=== PATIENT | female | born 1950 | race Caucasian/White ===

== ENCOUNTER → 2023-06-16 11:33 | Outpatient (REF) | payer MEDICARE, OTHER, SELFPAY ==
[2023-06-16 15:56] LABS: % Basophils 0.5 % (0-2); % Eosinophils 1.9 % (0-6); % Lymphocytes 37.8 % (20.5-51.1); % Monocytes 14.8 % (1.7-9.3); Absolute Eosinophils 0.1 10^3/uL (0-0.7); Absolute Lymphocytes 1.4 10^3/uL (1.2-3.4); Absolute Monocytes 0.6 10^3/uL (0.1-0.6); Absolute Neutrophils 1.7 10^3/uL (1.4-6.5); Hematocrit 37.6 % (37.0-47.0); Hemoglobin 12.8 g/dL (12.0-16.0); Mean Corpuscular Hgb 30.4 pg (27.0-31.0); Mean Corpuscular Volume 89.3 fL (81.0-99.0); Mean Platelet Volume 9.8 fL (7.4-10.4); Nucleated Red Blood Cells % 0 %; Platelet Count 214 10^3/uL (130-400); Red Blood Cell Count 4.21 10^6/uL (4.20-5.40); Red Cell Dist. Width 13.3 % (11.5-14.5); White Blood Cell Count 3.8 10^3/uL (4.8-10.8)
[2023-06-16 16:07] LABS: ALT (SGPT) 26 U/L (0-35); AST (SGOT) 43 U/L (14-36); Albumin 4.4 g/dl (3.5-5.0); Alkaline Phosphatase 76 U/L (38-126); Blood Urea Nitrogen 10 mg/dl (7-17); Calcium 9.5 mg/dl (8.4-10.2); Carbon Dioxide 32 mmol/L (22-30); Chloride 97 mmol/L (98-107); Direct Bilirubin 0.4 mg/dl (0.0-0.4); Glucose 87 mg/dl (70-99); Potassium 3.7 mmol/L (3.5-5.1); Sodium 130 mmol/L (135-145); Total Protein 7.1 g/dl (6.3-8.2); eGFR > 60.00
[2023-06-16 16:22] LABS: Vitamin D, 25-OH*** 71.4 ng/mL (30-80)
== END ==
LOC: HWLAB 11:33
PROVIDERS: ATTENDING PHYSICIAN Internal Medicine
DX: Z00.00 Encounter for general adult medical examination without abnormal findings (principal); Z68.1 Body mass index [BMI] 19.9 or less, adult; E55.9 Vitamin D deficiency, unspecified
CPT/HCPCS: 36415; 80053; 82248; 82306; 85025

== ENCOUNTER → 2023-08-05 11:20 | Outpatient (REF) | payer MEDICARE, OTHER, SELFPAY | LOC: HWRAD 11:20 | PROVIDERS: ATTENDING PHYSICIAN Internal Medicine | DX: I25.10 Atherosclerotic heart disease of native coronary artery without angina pectoris (principal); Z82.49 Family history of ischemic heart disease and other diseases of the circulatory system; I25.84 Coronary atherosclerosis due to calcified coronary lesion | CPT/HCPCS: 75571 ==

== ENCOUNTER → 2024-02-25 12:52 | Outpatient (REF) | payer MEDICARE, OTHER, SELFPAY | LOC: HWWDC 12:52 | PROVIDERS: ATTENDING PHYSICIAN Internal Medicine | DX: Z13.820 Encounter for screening for osteoporosis (principal); Z12.31 Encounter for screening mammogram for malignant neoplasm of breast; Z78.0 Asymptomatic menopausal state | CPT/HCPCS: 77080 ==

== ENCOUNTER → 2024-08-03 13:16 | Outpatient (REF) | payer MEDICARE, OTHER, SELFPAY ==
[2024-08-03 16:13] LABS: ALT (SGPT) 26 U/L (0-35); AST (SGOT) 38 U/L (14-36); Albumin 4.8 g/dl (3.5-5.0); Alkaline Phosphatase 83 U/L (38-126); Blood Urea Nitrogen 10 mg/dl (7-17); Calcium 9.7 mg/dl (8.4-10.2); Carbon Dioxide 26 mmol/L (22-30); Chloride 98 mmol/L (98-107); Glucose 91 mg/dl (70-99); HDL Cholesterol 102 mg/dl; LDL Cholesterol, Calculated 85 mg/dl; Potassium 3.9 mmol/L (3.5-5.1); Sodium 134 mmol/L (135-145); Total Bilirubin 1.2 mg/dl (0.2-1.3); Total Cholesterol 201 mg/dl (50-199); Total Protein 7.1 g/dl (6.3-8.2); Triglyceride 72 mg/dl (10-149); Very Low Density Lipoprotein 14 mg/dl (0-30); eGFR > 60.00
[2024-08-03 16:14] LABS: Vitamin D, 25-OH*** 68.8 ng/mL (30-80)
[2024-08-03 16:29] LABS: % Basophils 0.5 % (0-2); % Eosinophils 1.3 % (0-6); % Immature Granulocytes 0.3 % (0-0.5); % Lymphocytes 31.2 % (20.5-51.1); % Monocytes 14.7 % (1.7-9.3); Absolute Eosinophils 0.1 10^3/uL (0-0.7); Absolute Lymphocytes 1.2 10^3/uL (1.2-3.4); Absolute Monocytes 0.6 10^3/uL (0.1-0.6); Hematocrit 37.5 % (37.0-47.0); Hemoglobin 12.7 g/dL (12.0-16.0); Mean Corp Hgb Conc. 33.9 g/dL (33.0-37.0); Mean Corpuscular Hgb 30.4 pg (27.0-31.0); Mean Corpuscular Volume 89.7 fL (81.0-99.0); Mean Platelet Volume 9.2 fL (7.4-10.4); Nucleated Red Blood Cells % 0 %; Platelet Count 231 10^3/uL (130-400); Red Blood Cell Count 4.18 10^6/uL (4.20-5.40); Red Cell Dist. Width 13.4 % (11.5-14.5); White Blood Cell Count 3.8 10^3/uL (4.8-10.8)
== END ==
LOC: HWLAB 13:16
PROVIDERS: ATTENDING PHYSICIAN Internal Medicine
DX: M81.0 Age-related osteoporosis without current pathological fracture (principal); E55.9 Vitamin D deficiency, unspecified; Z68.1 Body mass index [BMI] 19.9 or less, adult; I25.10 Atherosclerotic heart disease of native coronary artery without angina pectoris
CPT/HCPCS: 36415; 80053; 80061; 82306; 85025